=== PATIENT | female | born 1995 | race Two or more races ===

== ENCOUNTER → 2022-02-05 | Emergency (ER) | payer SELFPAY ==
[~2022-02-05] VITALS: Ht 165.1 cm; Wt 113.4 kg
[2022-02-05 01:14] VITALS: BP 141/81
== END | disposition left against medical advice (07) ==
LOC: ER 00:58
DX: R07.89 Other chest pain (principal); Z53.21 Procedure and treatment not carried out due to patient leaving prior to being seen by health care provider
CPT/HCPCS: 93005